=== PATIENT | female | born 1965 | race Caucasian/White ===

== ENCOUNTER 2017-03-03 22:25 | Emergency (ER) | payer SELFPAY ==
[2017-03-03 22:47] VITALS: RESP 20
--- NOTE | 2017-03-03 23:26 | C.PDOC ---
History Of Present Illness Patient is a 51 y/o female, with a hx of asthma, who presents to the ED with a complaint of palpitations since yesterday. 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 Patient denies any medication or drug use or any Hx of anxiety. Denies pain with palpitations but notes chest tightness that is absent as of now. Patient reports being unable to sleep for the last two nights and speculates that as the cause for her symptoms. No other physical complaints at this time. Chief Complaint (Nursing): Palpitations History Per: Patient History/Exam Limitations: no limitations Onset/Duration Of Symptoms: Days (2 days) Associated Symptoms: Other (chest tightness) Recent travel outside of the [place]: No Past Medical History Reviewed: Historical Data, Nursing Documentation, Vital Signs Vital Signs: Last Vital Signs Temp 97.7 F 03/04/17 00:42 Pulse 61 03/04/17 00:42 Resp 20 03/04/17 00:42 BP 121/69 03/04/17 00:42 Pulse Ox 97 03/04/17 00:42 - Medical History PMH: Asthma, HTN Surgical History: Appendectomy (2008) - [facility] Procedures CLS RED-RADIUS/UL EPIPHY (05/31/13) Family History: States: Unknown Family Hx - Social History Hx Tobacco Use: No Hx Alcohol Use: Yes Hx Substance Use: No - Immunization History Hx Tetanus Toxoid Vaccination: Yes Hx Influenza Vaccination: No Hx Pneumococcal Vaccination: No Review Of Systems Cardiovascular: Positive for: Palpitations Respiratory: Positive for: Other Psych: Positive for: Anxiety Physical Exam - Physical Exam Appears: Well, Non-toxic, No Acute Distress, Other (AAOx3) Skin: Normal Color, Warm, Dry Head: Atraumatic, Normacephalic Oral Mucosa: Moist Chest: Symmetrical Respiratory: Normal Breath Sounds, No Rales, No Rhonchi, No Wheezing, Other ( speaking full sentences) Gastrointestinal/Abdominal: Soft, No Tenderness Extremity: No Pedal Edema Neurological/Psych: Oriented x3, Normal Speech, Normal Cognition ED Course And Treatment - Laboratory Results Result Diagrams: 03/03/17 23:35 03/03/17 23:35 ECG: Interpreted By Me, Viewed By Me ECG Rhythm: Sinus Bradycardia Interpretation Of ECG: no ectopy, all intervals WNL; no old EKG for comparison. Rate From EC (bpm) O2 Sat by Pulse Oximetry: 95 Progress Note: Plan: Blood work, CXR, and EKG ordered. Disposition - Disposition Referrals: [facility] [Outside] Disposition: HOME/ ROUTINE Disposition Time: 00:02 Condition: GOOD Additional Instructions: take xanax as needed for anxiety,insomnia Prescriptions: ALPRAZolam [Xanax] 0.25 mg PO TID PRN #15 tab PRN Reason: Anxiety Forms: [employer] (Uzbek) Print Language: PAKISTANI - Clinical Impression Clinical Impression: Anxiety, Palpitation - Scribe Statement The provider has reviewed the documentation as recorded by the Scribe Annmarie Garcia All medical record entries made by the Scribe were at my direction and personally dictated by me. I have reviewed the chart and agree that the record accurately reflects my personal performance of the history, physical exam, medical decision making, and the department course for this patient. I have also personally directed, reviewed, and agree with the discharge instructions and disposition.
[2017-03-03 23:39] LABS: BASO # 0.1 K/uL (0.0-0.2); EOS # 0.3 K/uL (0.0-0.7); EOS % 3.3 % (0.0-4.0); HEMATOCRIT 35.3 % (34.0-47.0); LYMPH # 2.2 K/uL (1.0-4.3); LYMPH % 26.5 % (20.0-40.0); MEAN CELL VOLUME 88.6 fL (81.0-99.0); MEAN CORPUSCULAR HEMOGLOBIN 29.2 pg (27.0-31.0); MEAN PLATELET VOLUME 9.4 fL (7.2-11.7); MONO % 12.2 % (0.0-10.0); NRBC % 0.1 % (0.0-2.0); RED CELL DISTRIBUTION WIDTH 19.2 % (11.5-14.5); WHITE BLOOD COUNT 8.2 K/uL (4.8-10.8)
[2017-03-03 23:49] LABS: CHLORIDE 97 mmol/L (98-107)
[2017-03-03 23:50] LABS: POTASSIUM 4.5 mmol/L (3.6-5.2); SODIUM 129 mmol/L (132-148)
[2017-03-03 23:52] LABS: ALB/GLOB RATIO 1.1 (1.0-2.1); ALKALINE PHOSPHATASE 50 U/L (38-126); AST/SGOT 62 U/L (14-36); BILIRUBIN,TOTAL 1.8 mg/dL (0.2-1.3); BLOOD UREA NITROGEN 9 mg/dL (7-17); CARBON DIOXIDE 26 mmol/L (22-30); GFR AFRICAN-AMERICAN > 60; TOTAL PROTEIN 7.8 g/dL (6.3-8.3)
[2017-03-03 23:53] LABS: ALT/SGPT 28 U/L (9-52); GLUCOSE,RANDOM 94 mg/dL (65-105)
[2017-03-04 00:43] VITALS: BP 121/69; PULSE 61; TEMP 97.7
[2017-03-04 00:52] VITALS: O2SAT 95
--- NOTE | 2017-03-04 08:02 | RAD ---
HISTORY: palpits COMPARISON: Chest radiographs 08/19/2014. FINDINGS: LUNGS: No active pulmonary disease. Diminished inspiratory volume identified. PLEURA: No significant pleural effusion identified, no pneumothorax apparent. CARDIOVASCULAR: Normal. OSSEOUS STRUCTURES: No significant abnormalities. VISUALIZED UPPER ABDOMEN: Normal. OTHER FINDINGS: None. IMPRESSION: History appears diminished however there is no acute infiltrate identified bilaterally. No pulmonary venous congestion or cardiomegaly.
--- NOTE | 2017-03-08 11:04 | CARD ---
APPROVED REPORT EKG Measurement Heart [id number] <Conclusion> Sinus bradycardia Otherwise normal ECG
== END 2017-03-04 00:43 | disposition home or self-care (01) ==
LOC: C.ER 22:25
DX: F41.9 Anxiety disorder, unspecified (principal); R00.2 Palpitations

== ENCOUNTER 2018-06-05 09:57 | Emergency (ER) | payer OTHER ==
[2018-06-05 10:11] VITALS: RESP 18; TEMP 97.8
--- NOTE | 2018-06-05 10:53 | C.PDOC ---
History Of Present Illness 53 y/o female presents to the ED for evaluation of left knee injury sustained today. Patient states she slipped on some ice and fell onto her left knee. She is now complaining of left knee pain. Pain worsens with movement, especially bending the knee. Patient otherwise denies any numbness, weakness, or other injury. Time Seen by Provider: 06/05/18 10:10 Chief Complaint (Nursing): Lower Extremity Problem/Injury History Per: Patient History/Exam Limitations: no limitations Onset/Duration Of Symptoms: Hrs Current Symptoms Are (Timing): Still Present - Knee Description Of Injury: Fell Past Medical History Reviewed: Historical Data, Nursing Documentation, Vital Signs Vital Signs: Last Vital Signs Temp 97.8 F 06/05/18 10:06 Pulse 62 06/05/18 10:06 Resp 18 06/05/18 10:06 BP 153/77 H 06/05/18 10:06 Pulse Ox 98 06/05/18 10:06 - Medical History PMH: Asthma, HTN Surgical History: Appendectomy (2008) - [facility] Procedures CLS RED-RADIUS/UL EPIPHY (05/31/13) Family History: States: Unknown Family Hx - Social History Hx Tobacco Use: No Hx Alcohol Use: Yes (denies) Hx Substance Use: No - Immunization History Hx Tetanus Toxoid Vaccination: No Hx Influenza Vaccination: Yes Hx Pneumococcal Vaccination: No Review Of Systems Except As Marked, All Systems Reviewed And Found Negative. Constitutional: Negative for: Fever Respiratory: Negative for: Shortness of Breath Gastrointestinal: Negative for: Abdominal Pain Musculoskeletal: Positive for: Leg Pain (Left knee). Negative for: Back Pain Skin: Negative for: Lesions, Bruising Neurological: Negative for: Weakness, Numbness, Incoordination Physical Exam - Physical Exam Appears: Non-toxic, No Acute Distress Skin: Warm, Dry, No Rash Head: Atraumatic, Normacephalic Eye(s): bilateral: Normal Inspection Neck: Normal ROM Chest: Symmetrical Respiratory: No Accessory Muscle Use, Other (Normal inspiratory effort) Extremity: Tenderness (overlying the left patellar tendon), Capillary Refill (< 2 sec), No Deformity, No Swelling (or ecchymosis), Other (Pain on flexion of the left knee) Pulses: Left Dorsalis Pedis: Normal, Right Dorsalis Pedis: Normal Neurological/Psych: Oriented x3 Gait: Steady ED Course And Treatment O2 Sat by Pulse Oximetry: 98 (RA) Pulse Ox Interpretation: Normal - Other Rad left knee x-ray X-Ray: Read By Radiologist Interpretation: Accession No. : [id number]. Patient Name / ID : GRACIE BLAIR V / [id number]. Exam Date : 06/05/2018 10:55:55 ( Approved ). Study Comment : Sex / Age : F / 53Y. Creator : Chanelle Johnson MD. Dictator : Chanelle Johnson MD. Overlock Elastic Attacher : Brake Operator Sheet Metal : Chanelle Johnson MD. Approver2 : Report Date : 06/05/2018 12:07:32. My Comment : . PROCEDURE: Left Knee Radiographs. HISTORY: injury and pain. COMPARISON: None available. FINDINGS: BONES: No acute displaced fracture. JOINTS: No dislocation. JOINT EFFUSION: Small suprapatellar joint effusion. OTHER FINDINGS: None. IMPRESSION: Small suprapatellar joint effusion. No acute displaced fracture or dislocation identified. If symptoms persist, or if there is continued clinical concern, x-ray follow-up in 7-10 days should be considered. Medical Decision Making Medical Decision Making: Impression: Left knee injury Plan: * Left knee x-ray * 600 mg PO Motrin Imaging reviewed and discussed with patient. Advised continuing NSAIDs at home. Disposition - Disposition Disposition: HOME/ ROUTINE Disposition Time: 13:33 Condition: STABLE Additional Instructions: JOHNNIE Jessica BOWMAN SWAPNIL, thank you for letting us take care of you today. Your provider was Gayle Lynn MD and you were treated for LT KNEE PAIN FALL. The emergency medical care you received today was directed at your acute symptoms. If you were prescribed any medication, please fill it and take as directed. It may take several days for your symptoms to resolve. Return to the Emergency Department if your symptoms worsen, do not improve, or if you have any other problems. Please contact your doctor or call one of the physicians/clinics you have been referred to that are listed on the Patient Visit Information form that is included in your discharge packet. Bring any paperwork you were given at discharge with you along with any medications you are taking to your follow up visit. Our treatment cannot replace ongoing medical care by a primary care provider outside of the emergency department. Thank you for allowing the [facility] team to be part of your care today. If you had an X-Ray or CT scan: A Radiologist will review the ED reading if any change in treatment is needed we will contact you. If you had a blood, urine, or wound culture: It will take several days for the results, if any change in treatment is needed we will contact you. If you had an STI test: It will take 48 hours for the results. Please call after 1 week if you have not heard back. Prescriptions: RX: Ibuprofen [Motrin Tab] 600 mg PO TID PRN #15 tab PRN Reason: Pain, Moderate (4-7) Instructions: Knee Sprain (DC) Forms: [employer] (Croatian), Work Excuse Print Language: UZBEK - Clinical Impression Clinical Impression: Left knee injury - Scribe Statement The provider has reviewed the documentation as recorded by the Roxy Hernandez Provider Attestation: All medical record entries made by the Roxy were at my direction and personally dictated by me. I have reviewed the chart and agree that the record accurately reflects my personal performance of the history, physical exam, medical decision making, and the department course for this patient. I have also personally directed, reviewed, and agree with the discharge instructions and disposition.
--- NOTE | 2018-06-05 12:10 | RAD ---
PROCEDURE: Left Knee Radiographs. HISTORY: injury and pain COMPARISON: None available. FINDINGS: BONES: No acute displaced fracture. JOINTS: No dislocation. JOINT EFFUSION: Small suprapatellar joint effusion. OTHER FINDINGS: None. IMPRESSION: Small suprapatellar joint effusion. No acute displaced fracture or dislocation identified. If symptoms persist, or if there is continued clinical concern, x-ray follow-up in 7-10 days should be considered.
[2018-06-05 14:01] VITALS: BP 139/88; PULSE 68
[2018-06-05 18:49] VITALS: O2SAT 98
== END 2018-06-05 14:00 | disposition home or self-care (01) ==
LOC: C.ER 09:57
DX: S89.92XA Unspecified injury of left lower leg, initial encounter (principal); W00.0XXA Fall on same level due to ice and snow, initial encounter